=== PATIENT | female | born 1955 | race African-American/Black ===

== ENCOUNTER 2017-02-06 01:27 | Inpatient (IN) ==
[2017-02-06] MEDS ORDERED: DILAUDID IV ONE (03:55)
[2017-02-06] MEDS ORDERED: NS 1,000 ML IV SCH (03:56)
[2017-02-06] MEDS ORDERED: SODIUM CHLORIDE 0.9% INJ ONE (03:56)
[2017-02-06] MEDS ORDERED: PROTONIX IV ONE (03:56)
--- NOTE | 2017-02-06 04:03 | PROVIDER DOCUMENTATION ---
This chart was entered by Fernando Willett Scribe, acting as scribe for Jabari Doll MD. HPI-Abdominal Pain/GI Problem - General Chief Complaint: UTI Symptoms Stated Complaint: abd pain Time Seen by Provider: 02/06/17 01:54 Source: patient Allergies/Adverse Reactions: Patient Allergies Allergy/AdvReac Type Severity Reaction Status Date / Time No Known Allergies Allergy Verified 02/06/17 02:29 Home Medications: Home Medication List Medication Instructions Recorded Confirmed Last Taken Type Famotidine [Pepcid] 20 mg PO DAILY #30 cap 01/03/17 02/06/17 02/05/17 Rx Hyoscyamine Sulfate [Oscimin] 1 tab PO TID 01/12/17 02/06/17 02/05/17 History Sulfamethoxazole/Trimethoprim 1 each PO BID #14 tablet 02/04/17 02/06/17 Rx [Bactrim Ds Tablet] Citalopram Hydrobromide 40 mg PO DAILY 02/06/17 02/06/17 02/05/17 History [Citalopram HBr] Haloperidol [Haloperidol] 10 mg PO DAILY 02/06/17 02/06/17 02/05/17 History - History of Present Illness-ABD Nature of Presenting Problems: Pt is a61 y/o Black female with severe abdominal pain 10 out of 10 for 2 weeks. Pt says she has chronic pancreatitis and says she drinks about 12 beers a day. Pt says she has not been drinking as much as since she has been sick. Pt complains of N/V with some blood in her vomit. Pt says she has no dysuria now. Abdominal Pain Onset Location: reports: RUQ, LUQ Pain Radiation: reports: no radiation Quality of Pain: reports: aching Severity in ED: reports: severe Onset/Duration: reports: other (2 weeks) Timing: reports: still present Activities at Onset: reports: none Modifying Factors: improves with: analgesics Associated Symptoms: reports: diarrhea, nausea, vomiting. denies: fever/chills , sinus congestion/drainage Last BM: unsure Dark Stools Present?: reports: none noticed Rectal Bleeding: reports: none Emesis Description: reports: blood-streaked Review of Systems - Adult - REVIEW OF SYSTEMS - ADULT Constitutional: denies: chills, fever Eyes: reports: no symptoms reported Ears, Nose, Mouth & Throat: reports: no symptoms reported Cardiovascular: denies: chest pain, edema Respiratory: denies: cough, shortness of breath, wheezing Gastrointestinal: reports: abdominal pain, diarrhea, nausea, vomiting. denies: constipation, rectal bleeding Genitourinary: denies: dysuria, discharge, flank pain, hematuria, urinary retention Musculoskeletal: denies: back pain, muscle weakness, neck pain Integumentary: reports: no symptoms reported Neurological: reports: no symptoms reported Psychiatric: reports: no symptoms reported Endocrine: reports: no symptoms reported Hematologic/Lymphatic: reports: no symptoms reported Allergic/Immunologic: reports: no symptoms reported All Other Systems: Reviewed and Negative Past History - Adult - PAST MEDICAL HISTORY-ADULT Review of Records: reports: Old Records Reviewed, Nursing Assessment Review, Medications Reviewed Major Childhood Illnesses: reports: denies history Cardiovascular: reports: denies history Respiratory: reports: denies history Gastrointestinal: reports: GERD, pancreatitis Obstetrical/Gynecological: reports: denies history Genitourinary: reports: denies history Musculoskeletal: reports: denies history Neurological: reports: Seizures/Epilepsy Psychiatric: reports: bipolar, schizophrenia Endocrine/Immune: reports: denies history Other Conditions: reports: denies history - PRIOR SURGERIES/PROCEDURES Surgical/Procedure History: reports: orthopedic (extremity) (LT ankle. RT arm) - IMMUNIZATION STATUS Childhood Immunizations: See Nurse Assessment Flu Vaccine: See Nurse Assessment - FAMILY HISTORY Family History: reviewed, not pertinent - SOCIAL HISTORY Substance Use: alcohol Alcohol Use Frequency: every day Number of drinks per typical drinking period:: 11-15 drinks Physical Exam-General - PHYSICAL EXAM-ADULT Initial Vital Signs Reviewed: Yes - CONSTITUTIONAL General Appearance: appears well, alert, no apparent distress - EYES Eyes: PERRL/EOMI, pink conjunctivae - HEAD, EARS, NOSE, MOUTH & THROAT HENMT: moist mucous membranes, normal ENT inspection, TMs normal, pharynx normal - NECK Neck: non-tender, full range of motion, supple, normal inspection - RESPIRATORY Respiratory: lungs clear, normal breath sounds, no pleuratic chest pain, no respiratory distress, no accessory muscle use - CARDIOVASCULAR Cardiovascular: normal peripheral pulses, regular rate, rhythm - GASTROINTESTINAL (ABDOMEN) Abdominal Exam: normal bowel sounds, soft, tenderness (RUQ, LUQ). negative: distended, guarding, rebound - MUSCULOSKELETAL Back Exam: normal inspection, no CVA tenderness, no vertebral tenderness Extremity: normal range of motion, non-tender, normal gait, normal inspection - SKIN Integumentary: normal color, normal turgor, warm/dry - NEUROLOGIC Neurologic: grossly normal, no motor/sensory deficits - PSYCHIATRIC Psych/Mental Status: normal mood/affect, normal thought content, normal thought process, oriented x 3 Progress - PLAN OF CARE/RESULTS Progress/Plan/Lab Results: Vital Signs - 8 hr 02/06/17 01:45 Temperature 98.2 F Pulse Rate 79 Respiratory Rate 18 Blood Pressure 152/85 O2 Sat by Pulse Oximetry 100 - CT/MRI 1 CT Study: Abdomen, Pelvis Impression: Abnormal, See EMR Report (consistent withgastric carcinoma (my reading)) Departure - Departure Date of Disposition Decision: 02/06/17 Time of Disposition Decision: 04:02 DIAGNOSIS: Abdominal pain Qualifiers: Abdominal location: epigastric Qualified Code(s): R10.13 - Epigastric pain Disposition: ADMITTED INPATIENT 09 Certified Medical Emergency: Emergent Condition: Fair Referrals and Follow-Ups: None,PCP [Primary Care Provider] - - Critical Care Note This patient required my direct & personal management of CC.: No Attestation - Physician/ MOISÉS Attestation Patient care was provided by Advanced Practice Provider:: No The physician spent face to face time with patient:: Yes Advanced Practice Provider documentation review:: Supervising physician onsite and consulted in the evaluation and care of this patient. The physician did have a face to face encounter with the patient. This chart was documented by the indicated scribe, (Fernando Willett Scribe) and accurately reflects the services I performed and decisions made by me, Jabari Doll MD, as attested by the provider's signature.
--- NOTE | 2017-02-06 05:06 | HISTORY AND PHYSICAL ---
PRIMARY CARE PHYSICIAN: None. CHIEF COMPLAINT: Epigastric pain x3 weeks. HISTORY OF PRESENTING ILLNESS: A 61-year-old female with a history of paranoid schizophrenia who had presented to the emergency department with a 3 week history of having intermittent epigastric pain. She described it as a burning sensation and stated that she did not feel well. She apparently had come to the emergency department several times for similar symptoms. The patient had a CAT scan done and as per ER physician, it showed thickened gastric areas, possibly suspicious for an ulcer versus a lesion. Due to her presenting symptoms, it was thought that we would place her for observation for further evaluation by gastroenterology. At the time of my examination, she had denied any headache, fever, chills, chest pain, or shortness of breath but complained of epigastric pain. PAST MEDICAL HISTORY: Includes paranoid schizophrenia. PAST SURGICAL HISTORY: None. ALLERGIES: No known drug allergies. CURRENT MEDICATIONS: As listed on the medication reconciliation sheet. SOCIAL HISTORY: She denies any history of smoking. Admits to social alcohol use. Denies any illicit drug use. FAMILY HISTORY: No history of coronary artery disease. REVIEW OF SYSTEMS: Twelve point review of systems as listed in the HPI. Other systems negative. PHYSICAL EXAMINATION: GENERAL: Cooperative, friendly female. She is resting comfortably now. VITAL SIGNS: Temperature is 98.2 degrees, pulse 79, respirations 18, blood pressure 152/85. HEENT: Atraumatic, normocephalic. Extraocular movements intact. PERRLA. NECK: Supple. CHEST: Clear to auscultation. CARDIOVASCULAR: Regular rate and rhythm. ABDOMEN: Soft. Positive bowel sounds. EXTREMITIES: No edema. NEUROLOGIC: She is awake, alert, oriented x3. : No bladder distention. SKIN: Warm. LABORATORIES AND STUDIES: Still pending. ASSESSMENT: A 61-year-old female with a history of paranoid schizophrenia who had presented to the emergency department with a 3 week history of having ongoing epigastric pain. She apparently had a CAT scan done which did show a possible gastric lesion versus ulcer. Due to her presenting symptoms, it was thought that we would place her for observation for further evaluation and management. 1. Epigastric pain. 2. Abnormal CT read by emergency room physician. 3. Paranoid schizophrenia. PLAN: 1. We will admit patient for observation. 2. Start patient on PPI. 3. We will consult gastroenterology. 4. We will restart her home medications. 5. Put patient on DVT prophylaxis with SCDs. 6. We will continue to follow and reassess. cc: Vimal Hopkins MD
[2017-02-06] MEDS ORDERED: ZOFRAN IV PRN (06:28)
[2017-02-06] MEDS: SODIUM CHLORIDE 0.9% INJ SCH (06:47)
[2017-02-06] MEDS: PROTONIX IV SCH (06:47)
--- NOTE | 2017-02-06 07:15 | Diag Imaging Result Doc PS360 ---
EXAM: CT ABD/PELVIS W/ IV CONT ONLY HISTORY: midepigastric pain TECHNIQUE: CT of the abdomen and pelvis with intravenous contrast and dose reduction (clarity.) COMMENT: There are no previous studies. There is minimal atelectasis or fibrosis in the posterior costophrenic sulci. There is a small hiatal hernia. There is mucosal thickening in the gastric antrum. There is an apparent ulcer crater in the posterior wall of the gastric antrum measuring 11 mm in diameter. No definite evidence of perforation is present but there is some stranding in the mesenteric fat adjacent to this. No abnormal fluid collections are present otherwise. There is no evidence of abdominal aortic aneurysm. The mesenteric arteries are patent. There is a fairly large calcified plaque in the proximal left renal artery. There are granulomata in the spleen. There are no apparent gallstones. There is a calcified node near the head of the pancreas. There is no evidence of biliary dilatation. The liver is unremarkable. The adrenal glands are not enlarged. The pancreas is normal in appearance. There is some cortical scarring in the upper pole and to lesser extent the lower pole of the right kidney. No evidence of hydronephrosis or stones is present. There is no evidence of bowel obstruction. No significant adenopathy is present. Pelvis: The appendix is normal in appearance. There are number of hyperdense masses with some calcification in the uterus most likely representing multiple leiomyomata. No abnormal fluid collections are present. There are no other masses and there is no evidence of significant adenopathy. Gas and stool are present in the rectum. No acute bony abnormalities are present. IMPRESSION: 1. Hiatal hernia. Apparent ulcer in the gastric antrum with antral gastritis. 2. Fibroid uterus. Electronically signed by Janusz Vivar 02/06/2017 7:13 AM
[2017-02-06] MEDS: HALDOL PO SCH (09:55)
[2017-02-06] MEDS: CELEXA PO SCH (09:55)
--- NOTE | 2017-02-06 15:26 | PROGRESS NOTE ---
DATE: 02/06/2017 SUBJECTIVE: Today, Ms. Joseph referred to be doing a lot better. Still has residual stomach discomfort. Of note, Ms. Joseph got admitted early this morning because of epigastric pain, which has been going on for the past 3 weeks. Was evaluated in the ER. A CT scan of the abdomen and pelvis shows hiatal hernia and apparent ulcer in the gastric atrium with antral gastritis. Was therefore admitted for adequate medical care. OBJECTIVE: Vital signs: Blood pressure is 117/68, pulse of 74, respirations 24, temperature is 98.7. General: Ms. Joseph is a 61-year-old, female. She is in bed, does not seem to be in unremarkable distress. HEENT: Mucosa is pink and moist. Anicteric, acyanotic. The patient has very poor dentition. Chest: Clear. Cardiovascular: Regular rate and rhythm. There are no murmurs, no rubs, no gallops. Abdomen: Soft, mildly tender in the epigastrium. Bowel sounds are present. PROFESSIONAL DEVELOPMENT INSTRUCTOR: Patient is awake and alert and oriented x4. There is no focal neurological deficit. LABORATORY DATA: None for today. A CT scan of the abdomen shows hiatal hernia. Apparent ulcer in the gastric antrum with antral gastritis. ASSESSMENT: 1. Epigastric pain secondary to gastric ulcer with antral gastritis on CT scan. Patient is currently on proton pump inhibitor. Will be pending on gastroenterology to evaluate the patient for possible EGD. Get some biopsies to make sure there is not any underlying malignancy. 2. Hiatal hernia, noted on CT scan. 3. History of paranoid schizophrenia. Currently stable. 4. Poor dentition. 5. Protein calorie malnutrition with a body mass index of 16.9. PLAN: So in general, I think Ms. Joseph is relatively stable. She was using a lot of ibuprofen according to her, so I suspect the GI findings is probably secondary to NSAID abuse. The patient has been cautioned not to use that anymore. Will continue with the PPI and her regular medications for her underlying chronic medical problems. Awaiting GI to evaluate the patient and then go from there. cc: Ramy Mathias MD
[2017-02-06] MEDS: CARAFATE LIQUID PO SCH ×2 (17:29→22:12)
[2017-02-06] MEDS: TYLENOL PO PRN (17:29)
[2017-02-07] MEDS: CARAFATE LIQUID PO SCH ×5 (04:23→23:50)
[2017-02-07] MEDS: PROTONIX IV SCH ×2 (06:40→23:49)
[2017-02-07] MEDS: SODIUM CHLORIDE 0.9% INJ SCH ×2 (06:40→23:50)
[2017-02-07 07:22] LABS: HEMATOCRIT 39.2 % (37.0-47.0); HEMOGLOBIN 13.5 g/dL (12.0-16.0); MCH 30.7 PG (27-31); MCHC 34.4 g/dL (33-37); MCV 89.1 FL (81-99); MPV 9.6 FL (7.4-10.4); RBC 4.4 XMIL (4.2-5.4)
[2017-02-07 07:48] LABS: CALCIUM 9.5 mg/dL (8.8-10.2); POTASSIUM 3.8 mmol/L (3.5-5.1)
[2017-02-07] MEDS ORDERED: VERSED ONE (15:38)
[2017-02-07] MEDS ORDERED: XYLOCAINE-MPF 2% ONE (15:45)
[2017-02-07] MEDS ORDERED: DIPRIVAN 1% ONE (15:45)
[2017-02-07] MEDS: CELEXA PO SCH (16:10)
[2017-02-07] MEDS: HALDOL PO SCH (16:15)
[2017-02-07 16:26] LABS: UR CREAT RANDOM 78.1 mg/dL (11-20); UR PROT RANDOM 13.7 mg/dL
--- NOTE | 2017-02-07 16:36 | PROGRESS NOTE ---
DATE: 02/07/2017 SUBJECTIVE: The patient is resting comfortably in bed. She is awaiting her EGD. She has no complaints at this time. OBJECTIVE: Vital Signs: Temperature 97.6 degrees, blood pressure 111/72, heart rate 65, respirations 16, O2 saturations 99% on room air. General: This is an elderly female sitting up in bed, in no acute distress. Head: Normocephalic, atraumatic. Heart: S1, S2. Normal. Regular rate and rhythm. Lungs: Clear to auscultation bilaterally. No crackles. No rales. Abdomen: Positive bowel sounds. Soft, nontender, nondistended. Extremities: No edema. No cyanosis. Neurologic: The patient is alert oriented x3. LABORATORY: Hemoglobin 13, hematocrit 39, platelets 269,000, white blood cell count 3.8. Sodium 135, potassium 3.8, chloride 101, CO2 13, anion gap 21, BUN 14, creatinine 1.4, glucose 66, calcium 9.5, TSH 3.12. ASSESSMENT AND PLAN: 1. Gastric ulcer. The patient is scheduled for an EGD today. Continue on IV Protonix and await the results of the endoscopy. 2. Acute kidney injury. We will start the patient on IV fluids and repeat the renal profile in the morning. Check urine studies. 3. Metabolic acidosis. The patient has been started on a bicarbonate drip. 4. Situational depression. Continue on Celexa. 5. Deep vein thrombosis prophylaxis. Continue with SCDs. cc: Kyleigh Landry MD [facility]
[2017-02-07] MEDS: 1/2 NS IV SCH (16:40)
[2017-02-07] MEDS: D5 IV SCH (16:40)
[2017-02-07] MEDS: SODIUM ACETATE IV SCH (16:40)
[2017-02-07] MEDS: TYLENOL PO PRN (17:40)
[2017-02-07] MEDS ORDERED: SODIUM CHLORIDE 0.9% INJ SCH (21:06)
--- NOTE | 2017-02-07 23:30 | CONSULTATION ---
DATE OF CONSULTATION: 02/06/2017 REFERRING PHYSICIAN: Ramy Mathias M.D. PRIMARY CARE PHYSICIAN: None. CHIEF COMPLAINT: 1. Epigastric pain. 2. Nausea with vomiting. 3. Large ulcer on CT scan with surrounding gastritis. HISTORY OF PRESENT ILLNESS: The patient is a 61-year-old, female with paranoid schizophrenia who presented to the emergency room with 3 weeks of epigastric pain. She describes nausea with vomiting, epigastric pain that is localized anteriorly without radiation. She reports that she is not taking any medications except for those that are prescribed by her physician. Because of the abnormal CT scan, we are asked to perform an upper endoscopy. She notes that although she is 61 years of age, she has never had a screening colonoscopy. She denies a family history of colon cancer and colon polyps. PAST MEDICAL HISTORY: 1. Paranoid schizophrenia. 2. GERD. 3. Acute pancreatitis. 4. History of peptic ulcer disease. 5. Depression. 6. Suicidal ideation. 7. History of acute psychoses. 8. History of polysubstance abuse, including cocaine, alcohol and marijuana. She notes that her last alcohol was 12/27/2016, although her toxicology screen was positive for alcohol more recently. 9. Urinary tract infection. 10. 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 11. Bilateral cataracts. 12. Angioedema on 01/12/2017. 13. Hiatal hernia. 14. Gastritis. 15. Protein calorie malnutrition. 16. The patient was so that she may have irritable bowel syndrome. PAST SURGICAL HISTORY: None. MEDICATION ALLERGIES: None. HOME MEDICATIONS: 1. Haldol. 2. Citalopram. 3. Bactrim. 4. Hyoscyamine sulfate. 5. Pepcid. SOCIAL HISTORY: The patient denies alcohol, tobacco or recreational drug use. However, review of her chart is remarkable for substantial alcohol, cocaine and marijuana use on toxicology screen and blood alcohol level. FAMILY HISTORY: Negative for coronary artery disease, colon cancer and colon polyps. REVIEW OF SYSTEMS: Positive for the information in the history of present illness. PHYSICAL EXAMINATION: Vital signs: Her blood pressure is 105/62, pulse 74, respiration 24, temperature of 98.4 degrees. HEENT: Negative for jaundice. Her conjunctivae are normal. Her oropharyngeal mucosal membranes are moist. There is poor dentition. Pulmonary : Lungs are clear to auscultation with normal expiratory effort. Cardiovascular: Reveals regular rate and rhythm with no murmurs, gallops, or rubs. Abdominal: Reveals normoactive bowel sounds. The abdomen is soft with moderate epigastric tenderness, but no rebound or guarding. Extremities: Bilaterally are negative for cyanosis, clubbing, or edema. LABORATORY: The last set of laboratory results available are from 02/04/2017. At that time, her hemoglobin is 14 with hematocrit of 39.9, and a white count of 4.54. She has 316,000 platelets. Sodium is 139, potassium 3.5, chloride 101, CO2 is 18, BUN 9, creatinine 1.2 with a glucose of 101. Calcium is 9.7, total bilirubin 0.30, AST 13, ALT 7, alkaline phosphatase 59, total protein 8.5, albumin 5 and a lipase of 23. In the emergency room, urinalysis is remarkable for too- [id number] white blood cells. Her urine toxicology screen was positive for marijuana. IMPRESSION: 1. Epigastric pain. 2. Nausea with vomiting. 3. Ulcer on CT scan. RECOMMENDATION: 1. I strongly suspect the patient has been using nonsteroidal antiinflammatory drugs. We will place her on the schedule for an EGD for further evaluation in the morning. 2. Begin Protonix 40 mg IV q.12 hours. 3. Begin Carafate 1 g p.o. 4 times a day pending endoscopic evaluation. 4. We will make arrangements for the patient undergo an outpatient screening colonoscopy. 5. Additional recommendations to follow based on clinical course. 6. The patient has been on hyoscyamine for abdominal pain. It is reasonable to resume this postprocedure. 7. Additional recommendations to follow based on her clinical course. cc: MD Ramy Barr MD [facility]
--- NOTE | 2017-02-08 03:26 | OPERATIVE NOTE ---
PROCEDURE DATE: 02/07/2017 REFERRING PHYSICIAN: Ramy Mathias M.D. PRIMARY CARE PROVIDER: None. INDICATION FOR PROCEDURE: 1. Nausea with vomiting. 2. Epigastric pain. 3. Ulcer and gastritis on CT scan of the abdomen. 4. NSAID use, with a history of BC and Goody Powder ingestion. PROCEDURE PERFORMED: Esophagogastroduodenoscopy with biopsy. CONSENT: Informed consent was obtained from the patient prior to the procedure. The risks, benefits, and alternatives were discussed. MEDICATION: The patient received monitored anesthesia care. PERFORMING PHYSICIAN: Daphnie Figueroa M.D. ASSISTANTS: 1. ST. [facility]Daval 2. Margret Griffith RN. 3. Geena Villegas CRNA. 4. Keshav Gordon M.D. (anesthesia). COMPLICATIONS: There were no complications. ESTIMATED BLOOD LOSS: 1-2 mL. SPECIMENS REMOVED: 1. Duodenal biopsy. 2. Gastric biopsy. FINDINGS: After sedation was achieved, the upper endoscope was inserted to the 2nd portion of the duodenum. The hypopharynx appeared endoscopically normal. At the upper esophageal sphincter, there was a mucosal ledge, consistent with cricopharyngeal achalasia. The tubular esophagus itself appeared normal, with no evidence of varices or Campos's esophagus. In the distal esophagus, there was a tight Schatzki's ring that was dilated with the scope. There was a small amount of heme present, but no evidence of perforation. In the gastric lumen, there was diffuse erosive gastritis. On retroflexed view, there was erosive gastritis in the fundus. In the antrum and body, there at least 6 cratered whitish-based ulcers. The smallest ulcer with approximately 6- 8 mm in size. The largest ulcer was approximately 2.5-3 cm in size. Multiple biopsies were obtained. The pylorus appeared normal. However, in the duodenum, there was severe erosive duodenitis, and possible early duodenal ulceration. Multiple biopsies were obtained. After the exam was complete, the lumen was decompressed and the scope was removed without incident. IMPRESSION: 1. 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 2. Tight Schatzki's ring, dilated with the scope. 3. Erosive gastritis. 4. Multiple large whitish-based ulcers, with no stigmata of bleeding. 5. Erosive gastritis. 6. Severe duodenitis, with early duodenal ulceration. RECOMMENDATION: 1. Await endoscopic biopsy results. 2. Begin omeprazole 40 mg p.o. b.i.d. for 6 weeks, then once daily. 3. Begin Carafate 1 g p.o. 4 times a day for 12 weeks, then stop. 4. The patient should undergo a repeat EGD with dilation of the upper and lower esophageal sphincter. In addition, we will reassess the multiple gastric ulcers to determine if there are healed. 5. We will await the biopsy results to determine if she has H. pylori. If it is positive, we will treat accordingly. 6. The patient has never had a screening colonoscopy. We will plan to perform a screening colonoscopy when we repeat her EGD in 12 weeks. 7. As long as the patient's blood count is stable, it is reasonable to discharge her in the next 1-2 days from a GI perspective. 8. We will have the patient return to clinic in 4 weeks to assess interval progress. cc: MD Ramy Barr MD Katherine Takundwa, MD MTDD
[2017-02-08 06:58] LABS: HEMATOCRIT 34.3 % (37.0-47.0); MCH 30.6 PG (27-31); MCV 87.5 FL (81-99); MPV 9.9 FL (7.4-10.4); RBC 3.92 XMIL (4.2-5.4)
[2017-02-08 07:23] LABS: AGAP 13; ALBUMIN 3.8 g/dL (3.5-5.0); BUN 9 mg/dL (8-22); CALCIUM 8.9 mg/dL (8.8-10.2); CHLORIDE 105 mmol/L (98-107); COSMO 280; POTASSIUM 3.6 mmol/L (3.5-5.1); SODIUM 141 mmol/L (136-145); TCO2 23 mmol/L (25-35)
[2017-02-08] MEDS: 1/2 NS IV SCH (09:30)
[2017-02-08] MEDS: D5 IV SCH (09:30)
[2017-02-08] MEDS: SODIUM ACETATE IV SCH (09:30)
[2017-02-08] MEDS: CARAFATE LIQUID PO SCH ×3 (09:32→23:07)
[2017-02-08] MEDS: HALDOL PO SCH (09:35)
[2017-02-08] MEDS: PROTONIX IV SCH ×2 (09:37→23:06)
[2017-02-08] MEDS: CELEXA PO SCH (09:39)
[2017-02-08] MEDS: TYLENOL PO PRN ×3 (10:35→23:07)
--- NOTE | 2017-02-08 17:19 | PROGRESS NOTE ---
DATE: 02/08/2017 SUBJECTIVE: This patient is still complaining of epigastric pain, moderate, I have reviewed her lab work and the hemoglobin dropped from 13.5 to 12, the acute kidney injury resolved after fluids. She was scoped yesterday and impression. Probably cricopharyngeal achalasia, Schatzki ring dilated with the scope. Erosive gastritis, multiple large whitish base ulcers with no stigmata of bleeding. Severe duodenitis with early duodenal ulceration. OBJECTIVE: Vital Signs: Temperature 98.1 degrees, pulse 73, respiratory rate 16, blood pressure 120/73, oxygen saturation 100% on room air. HEENT: Head normocephalic. No trauma. PERRLA. Neck: Supple. No JVD. No masses. Central trachea. Chest: Clear to auscultation. No wheezing. No rales. Abdomen: Soft, tender to palpation at the level of the epigastric area and periumbilical area, moderate, nonradiated, positive bowel sounds. Extremities : No edema. No clubbing. No cyanosis. Neurological: The patient is alert and oriented x3. No focal deficits. LABORATORY: WBC 3.2, hemoglobin 12, hematocrit 34.3, platelets 253,000. Sodium 141, potassium 3.6, chloride 105, bicarbonate 23, BUN 9, creatinine 0.8, glucose 92, calcium 8.3, albumin 3.8. ASSESSMENT AND PLAN: 1. Gastritis and duodenitis with multiple gastric ulcers and early duodenal ulceration, this patient has been followed by Gastroenterology Department. An EGD was done yesterday. We will continue with her treatment, hopefully tomorrow will discharge this patient if the lab work is okay. 2. Acute kidney injury. Resolved. 3. Metabolic acidosis likely secondary to kidney injury resolved. 4. Situational depression. Continue on Celexa. 5. Deep vein thrombosis prophylaxis. Continue with SCDs. cc: Brent Alonso MD [facility]
[2017-02-08] MEDS ORDERED: AMOXIL PO ONE (17:56)
[2017-02-08] MEDS ORDERED: PHENERGAN IV PRN (18:01)
[2017-02-08] MEDS ORDERED: SODIUM CHLORIDE 0.9% INJ PRN (18:01)
--- NOTE | 2017-02-08 20:01 | PROGRESS NOTE ---
DATE: 02/08/2017 SUBJECTIVE: The patient continues to have significant epigastric pain despite receiving Carafate and Protonix. She reports some nausea but is able to press on her epigastrium which induced pain. EXAM: Her blood pressure is 120/73, pulse 73, respirations 16, temperature of 98.1 degrees. The remainder of her exam was deferred as the patient was able to elicit epigastric tenderness and epigastric pain with palpation. OBJECTIVE DATA: Reveals a hemoglobin of 12.0 with hematocrit of 34.3 and a white count of 3.25. She had 253,000 platelets. Sodium is 141, potassium 3.6, chloride 105, CO2 of 23, BUN 9, creatinine 0.8 with a glucose of 92. Her calcium is 8.9, phosphorus 2.5 and albumin 3.8. RECOMMENDATION: 1. In light of the patient's multiple gastric and duodenal ulcerations, I would continue the Protonix and twice a day PPI therapy for 12-24 weeks. 2. Although her test results are pending, I will empirically begin treatment for H pylori in light of her persistent abdominal pain. 3. Her hemoglobin has dropped 1.5 g overnight. Therefore, I recommend monitoring for another 24 hours. If her hemoglobin continues to drop, she may need further evaluation including a colonoscopy. It is not uncommon for NSAIDs to cause nonspecific colonic ulcerations when there has been such degree of ulceration in the stomach. 4. Additional recommendations will be based on her clinical course. cc: Brent Alonso MD
[2017-02-08] MEDS: SODIUM CHLORIDE 0.9% INJ SCH (23:06)
[2017-02-08] MEDS: BIAXIN PO SCH (23:07)
[2017-02-09] MEDS: CARAFATE LIQUID PO SCH ×2 (06:17→09:59)
[2017-02-09 07:18] LABS: MANUAL DIFF NEEDED? NO
[2017-02-09 07:19] LABS: BASO% 1.2 % (0.0-0.8); EOS# 0.09 X1000 (0.0-0.7); EOS% 2.2 % (0.0-10.0); HEMATOCRIT 35.9 % (37.0-47.0); HEMOGLOBIN 12.6 g/dL (12.0-16.0); LYMPH# 1.63 X1000 (1.2-3.4); LYMPH% 39.3 % (20.5-51.1); MCH 30.3 PG (27-31); MCHC 35.1 g/dL (33-37); MCV 86.3 FL (81-99); MONO# 0.48 X1000 (0.11-0.59); MONO% 11.6 % (1.7-9.3); MPV 9.6 FL (7.4-10.4); NEUT% 45.7 % (42.2-75.2); PLT 301 X1000 (130-400); RBC 4.16 XMIL (4.2-5.4)
[2017-02-09 07:38] LABS: AGAP 9; ALBUMIN 3.6 g/dL (3.5-5.0); BUN 13 mg/dL (8-22); CALCIUM 9.2 mg/dL (8.8-10.2); CHLORIDE 102 mmol/L (98-107); COSMO 287; POTASSIUM 3.4 mmol/L (3.5-5.1); SODIUM 144 mmol/L (136-145); TCO2 33 mmol/L (25-35)
[2017-02-09] MEDS ORDERED: KLOR-CON POWDER PACKET PO ONE (07:58)
[2017-02-09] MEDS: PROTONIX IV SCH (09:58)
[2017-02-09] MEDS: HALDOL PO SCH (09:59)
[2017-02-09] MEDS: CELEXA PO SCH (09:59)
[2017-02-09] MEDS: BIAXIN PO SCH (09:59)
[2017-02-09] MEDS: TYLENOL PO PRN (10:11)
[2017-02-09 12:16] VITALS: BP 110/88
[2017-02-09] MEDS ORDERED: CARAFATE PO SCH (13:00)
--- NOTE | 2017-02-09 15:43 | DISCHARGE SUMMARY ---
ADMISSION DATE: 02/06/2017 DISCHARGE DATE: 02/09/2017 DISCHARGE DIAGNOSES: 1. Gastritis and duodenitis with multiple gastric ulcers and early duodenal ulceration. 2. Possible Helicobacter pylori, pending biopsy. 3. Acute kidney injury, resolved. 4. Metabolic acidosis, likely secondary to kidney injury, resolved. 5. Situational depression. CONSULTATIONS: Gastroenterology Department, Dr. Figueroa. HOSPITAL COURSE: This is a 61-year-old female with a past medical history of paranoid schizophrenia, who had presented to the emergency department with the chief complaint of history of having intermittent epigastric pain that started 3 weeks prior to admission, associated with burning sensation. CT scan done at the emergency department showed thickening of gastric area suspicious for ulcers versus a mass lesion. Due to her presenting symptoms, she was evaluated and admitted to the hospital. Gastroenterology Department performed an upper endoscopy that showed gastritis and duodenitis with multiple gastric ulcers and early duodenal ulceration. This patient has been placed on Carafate and also PPIs after the procedure. Due to her lesions, it was felt that we needed to start this patient on treatment for H. pylori, even though pathology report is pending. Today, 02/09/2017, this patient was feeling better. Lab work was stable, so we decided to discharge this patient with strict followup by Dr. Figueroa in 3 weeks and also followup by her primary care doctor in 1 week. At the moment of discharge, this patient was tolerating p.o., ambulating and with mild symptoms, much better compared with admission. PHYSICAL EXAMINATION: VITAL SIGNS: Temperature is 98.5, pulse 100, respiratory rate 19, blood pressure 110/88, oxygen saturation 100% on room air. HEENT: Head is normocephalic and atraumatic. PERRLA. NECK: Supple. No JVD. No masses. Central trachea. CHEST: Clear to auscultation. No wheezing, no rales. ABDOMEN: Soft. Mildly tender to palpation at the level of the epigastric area. Positive bowel sounds. Nondistended. EXTREMITIES: No edema, no clubbing, no cyanosis. NEUROLOGICAL: The patient was alert and oriented x3. No focal neuro deficits. DIAGNOSTIC DATA: WBC was 4.1, hemoglobin 12.6, hematocrit 35.9, platelets 301. Sodium is 144, potassium 3.4, chloride 102, bicarbonate 33, BUN is 13, creatinine 0.7, glucose 91, calcium 9.2, albumin 3.6. FOLLOWUP: Dr. Figueroa in 3 to 4 weeks and also follow up with her primary care doctor in 1 week. DISCHARGE MEDICATIONS: Haloperidol 10 mg p.o. daily, citalopram 40 mg p.o. daily, sucralfate 1 g p.o. 4 times a day, omeprazole 40 mg p.o. b.i.d., clarithromycin 500 mg p.o. b.i.d. for 2 weeks, amoxicillin 1 g p.o. q.12 hours for 2 weeks, acetaminophen 650 mg p.o. q.4 hours p.r.n. pain. Time discharging this patient was 35 minutes. cc: Brent Alonso MD
[2017-02-09] MEDS ORDERED: PRILOSEC PO SCH (21:00)
[2017-02-09] MEDS ORDERED: AMOXIL PO SCH (21:00)
--- NOTE | 2017-02-11 07:14 | EKG Report ---
Test Performed on : 02/09/2017 10:52:09 AM Test Reason : CP Blood Pressure : / mmHG Vent. Rate : 085 BPM Atrial Rate : 085 BPM P-R Int : 204 ms QRS Dur : 072 ms QT Int : 376 ms P-R-T Axes : 047 017 058 degrees QTc Int : 447 ms Normal sinus rhythm. Septal infarct , age undetermined Abnormal ECG When compared with ECG of 12-APR-2014 07:03, PA interval has decreased Nonspecific T wave abnormality Inferior leads T wave inversion now evident in V1-V2 Nonspecific ST abnormality precordial leads Confirmed by Anil Nj DO ([id number]) on 02/11/2017 6:23:07 PM
== END 2017-02-09 12:00 | disposition home or self-care (01) ==
LOC: ED 01:27 → 3N 01:27 → SUATTDRO 06:03 → OBSVTOIN 06:03
PROVIDERS: ATTEND Internal Medicine

== ENCOUNTER 2017-02-20 21:23 | Inpatient (IN) ==
[2017-02-20] MEDS ORDERED: PHENERGAN PO ONE (23:02)
[2017-02-20] MEDS ORDERED: TYLENOL WITH CODEINE #3 PO ONE (23:02)
[2017-02-20] MEDS ORDERED: PRILOSEC PO ONE (23:03)
[2017-02-20 23:34] LABS: MANUAL DIFF NEEDED? NO
[2017-02-20 23:38] LABS: EOS# 0.09 X1000 (0.0-0.7); EOS% 2.4 % (0.0-10.0); HEMATOCRIT 37.6 % (37.0-47.0); HEMOGLOBIN 13.2 g/dL (12.0-16.0); LYMPH# 1.96 X1000 (1.2-3.4); LYMPH% 51.4 % (20.5-51.1); MCH 29.9 PG (27-31); MCHC 35.1 g/dL (33-37); MCV 85.3 FL (81-99); MONO# 0.32 X1000 (0.11-0.59); MONO% 8.4 % (1.7-9.3); MPV 8.9 FL (7.4-10.4); NEUT% 36.8 % (42.2-75.2); PLT 441 X1000 (130-400); RBC 4.41 XMIL (4.2-5.4)
[2017-02-20 23:56] LABS: AGAP 17; ALBUMIN 4.5 g/dL (3.5-5.0); ALKALINE PHOSPHATASE 62 U/L (32-104); BUN 7 mg/dL (8-22); CALCIUM 9.8 mg/dL (8.8-10.2); CHLORIDE 97 mmol/L (98-107); COSMO 275; GOT 42 U/L (10-30); GPT 138 U/L (10-36); LIPASE 31 U/L (13-60); POTASSIUM 3.1 mmol/L (3.5-5.1); SODIUM 139 mmol/L (136-145); TCO2 25 mmol/L (25-35); TOTAL BILIRUBIN 0.61 mg/dL (0.20-1.00)
[2017-02-21] MEDS ORDERED: MORPHINE IV ONE (00:29)
[2017-02-21] MEDS ORDERED: ZOFRAN IV ONE (00:29)
--- NOTE | 2017-02-21 00:30 | PROVIDER DOCUMENTATION ---
This chart was entered by Negin Sheikh Scribe, acting as scribe for Fernando Gonzalez MD. HPI-Abdominal Pain/GI Problem - General Chief Complaint: Return/Recheck Stated Complaint: epigastric pain Time Seen by Provider: 02/20/17 22:51 Source: patient Allergies/Adverse Reactions: Patient Allergies Allergy/AdvReac Type Severity Reaction Status Date / Time No Known Allergies Allergy Verified 02/06/17 02:29 Home Medications: Home Medication List Medication Instructions Recorded Confirmed Last Taken Type Omeprazole [Prilosec] 40 mg PO BID #168 capsule 02/09/17 02/16/17 02/16/17 Rx Sucralfate [Carafate] 1 gm PO 4XDAY #112 tablet 02/09/17 02/16/17 02/16/17 Rx Hydrocodone/APAP 5 mg/325 mg 1 each PO Q8H PRN PRN #10 tablet 02/16/17 Unknown Rx [Banks-5] - History of Present Illness-ABD Nature of Presenting Problems: 61 Y/O F presents to ED with ABD pain. Pt has a hx of ulcers. pt is c/o of epigastric pain and vomiting 3-4 episodes that began tonight. Pt states that she was hospitalized on the for ABD pain. Abdominal Pain Onset Location: reports: generalized abdomen Pain Radiation: reports: no radiation Quality of Pain: reports: aching Severity in ED: reports: moderate Onset/Duration: reports: this evening Timing: reports: still present Associated Symptoms: reports: vomiting. denies: EENT symptoms, headaches, shortness of breath, sensory/motor loss, pain with inspiration Review of Systems - Adult - REVIEW OF SYSTEMS - ADULT Constitutional: reports: no symptoms reported Eyes: reports: no symptoms reported Ears, Nose, Mouth & Throat: reports: no symptoms reported Cardiovascular: reports: no symptoms reported Respiratory: denies: cough, shortness of breath Gastrointestinal: reports: abdominal pain, nausea, vomiting. denies: diarrhea Genitourinary: reports: no symptoms reported Musculoskeletal: reports: no symptoms reported Integumentary: reports: no symptoms reported Neurological: reports: no symptoms reported Psychiatric: reports: no symptoms reported Endocrine: reports: no symptoms reported Hematologic/Lymphatic: reports: no symptoms reported Allergic/Immunologic: reports: no symptoms reported All Other Systems: Reviewed and Negative Past History - Adult - PAST MEDICAL HISTORY-ADULT Review of Records: reports: Old Records Reviewed, Nursing Assessment Review, Medications Reviewed, Social history reviewed & non-contributory. Major Childhood Illnesses: reports: denies history Cardiovascular: reports: denies history Respiratory: reports: denies history Gastrointestinal: reports: GERD, pancreatitis Obstetrical/Gynecological: reports: denies history Genitourinary: reports: denies history Musculoskeletal: reports: denies history Neurological: reports: Seizures/Epilepsy Psychiatric: reports: bipolar, schizophrenia Endocrine/Immune: reports: denies history Other Conditions: reports: denies history - PRIOR SURGERIES/PROCEDURES Surgical/Procedure History: reports: orthopedic (extremity) (LT ankle. RT arm) - IMMUNIZATION STATUS Childhood Immunizations: See Nurse Assessment Flu Vaccine: See Nurse Assessment - FAMILY HISTORY Family History: reviewed, not pertinent Physical Exam-General - CONSTITUTIONAL General Appearance: alert, no apparent distress - EYES Eyes: PERRL/EOMI, pink conjunctivae - HEAD, EARS, NOSE, MOUTH & THROAT HENMT: moist mucous membranes, normal ENT inspection, TMs normal, pharynx normal - NECK Neck: full range of motion, supple, normal inspection - RESPIRATORY Respiratory: lungs clear, normal breath sounds - CARDIOVASCULAR Cardiovascular: regular rate, rhythm, no edema, no gallop, no JVD, no murmur - GASTROINTESTINAL (ABDOMEN) Abdominal Exam: non tender - LYMPHATIC Lymphatic: no adenopathy - MUSCULOSKELETAL Back Exam: no CVA tenderness, no vertebral tenderness Extremity: normal range of motion, non-tender - SKIN Integumentary: normal color, normal turgor, warm/dry - NEUROLOGIC Neurologic: grossly normal - PSYCHIATRIC Psych/Mental Status: normal mood/affect, normal thought content, normal thought process, oriented x 3 Progress - PLAN OF CARE/RESULTS Progress/Plan/Lab Results: Vital Signs - 8 hr 02/20/17 21:28 Temperature 98.1 F Pulse Rate 85 Respiratory Rate 14 Blood Pressure 135/77 O2 Sat by Pulse Oximetry 100 Laboratory Results - last 24 hr 02/20/17 02/20/17 23:15 23:15 WBC 3.81 L RBC 4.41 Hgb 13.2 Hct 37.6 MCV 85.3 MCH 29.9 MCHC 35.1 RDW Std Deviation 13.2 Plt Count 441 H MPV 8.9 Immature Gran % (Auto) 0.0 Neut % (Auto) 36.8 L Lymph % (Auto) 51.4 H Toombs % (Auto) 8.4 Eos % (Auto) 2.4 Baso % (Auto) 1.0 H Immature Gran # (Auto) 0.00 Neut # (Auto) 1.40 Lymph # (Auto) 1.96 Toombs # (Auto) 0.32 Eos # (Auto) 0.09 Baso # (Auto) 0.04 Sodium 139 Potassium 3.1 L Chloride 97 L Carbon Dioxide 25 Anion Gap 17 BUN 7 L Creatinine 0.8 Estimated GFR/1.73 m2 > 60 BUN/Creatinine Ratio 9 Glucose 97 Calculated Osmolality 275 Calcium 9.8 Total Bilirubin 0.61 AST 42 H ALT 138 H Alkaline Phosphatase 62 Total Protein 8.0 Albumin 4.5 Globulin 3.5 Albumin/Globulin Ratio 1.3 Lipase 31 Orders Category Date Time Status CBC WITH ELECTRONIC DIFF [HEME] Stat Lab 02/20/17 23:15 Completed CMP [COMPREHENSIVE METABOLIC PANEL] [CHEM] Stat Lab 02/20/17 23:15 Completed LIPASE [CHEM] Stat Lab 02/20/17 23:15 Completed Acetaminophen with Codeine [Tylenol with Codeine #3] Med 02/20/17 23:02 Discontinued 1 each PO NOW ONE Omeprazole [Prilosec] Med 02/20/17 23:03 Discontinued 40 mg PO NOW ONE Promethazine [Phenergan] Med 02/20/17 23:02 Discontinued 25 mg PO NOW ONE Result Diagrams: 02/20/17 23:15 02/20/17 23:15 - CONSULTS/PCP/HOSPITALIST Notification #1 *Consult/PCP/Hospitalist*: Time Discussed: 00:16 Reason/Comments: Admit Consult Disposition: Admit (Admit Accepted) Departure - Departure Date of Disposition Decision: 02/21/17 Time of Disposition Decision: 00:28 DIAGNOSIS: Abdominal pain Qualifiers: Abdominal location: right upper quadrant Qualified Code(s): R10.11 - Right upper quadrant pain Disposition: ADMITTED INPATIENT 09 Certified Medical Emergency: Emergent Condition: Good Referrals and Follow-Ups: None,PCP [Primary Care Provider] - - Critical Care Note This patient required my direct & personal management of CC.: No Attestation - Physician/ MOISÉS Attestation Patient care was provided by Advanced Practice Provider:: No The physician spent face to face time with patient:: Yes Advanced Practice Provider documentation review:: Supervising physician onsite and consulted in the evaluation and care of this patient. The physician did have a face to face encounter with the patient. This chart was documented by the indicated scribe, (Negin Sheikh Scribe) and accurately reflects the services I performed and decisions made by me, Fernando Gonzalez MD, as attested by the provider's signature.
[2017-02-21] MEDS ORDERED: ZOFRAN IV PRN (03:06)
[2017-02-21] MEDS: MORPHINE IV PRN ×5 (03:34→21:40)
[2017-02-21] MEDS: PROTONIX IV SCH ×2 (03:34→13:49)
[2017-02-21] MEDS: SODIUM CHLORIDE 0.9% INJ SCH ×2 (03:34→13:49)
--- NOTE | 2017-02-21 04:50 | HISTORY AND PHYSICAL ---
PRIMARY CARE PHYSICIAN: None. CHIEF COMPLAINT: Epigastric pain. HISTORY OF PRESENTING ILLNESS: A 61-year-old female with a history of paranoid schizophrenia and gastric ulcers who had presented to the emergency department with a complaint of recurring epigastric pain. The patient apparently had an endoscopy done recently which did show gastric ulcers and she is on treatment for it. However, she states the pain was getting worse and subsequently she had come to the emergency department. In the ER, she was evaluated. It was noted that she also had some mildly abnormal LFTs. Due to her epigastric pain, it was thought that we would place her for observation for further management. At the time of my examination, she had denied any headache, vision changes, fevers, chills, chest pain, shortness of breath, hemoptysis, or any weight changes but complained of epigastric pain. PAST MEDICAL HISTORY: Paranoid schizophrenic and gastric ulcers. PAST SURGICAL HISTORY: None. ALLERGIES: No known drug allergies. CURRENT MEDICATIONS: As listed on the medication reconciliation sheet. SOCIAL HISTORY: No history of smoking. History of alcohol abuse, recently quit. Denies any illicit drug use. FAMILY HISTORY: No history of coronary artery disease. REVIEW OF SYSTEMS: Twelve point review of systems as listed in the HPI. Other systems negative. PHYSICAL EXAMINATION: GENERAL: Cooperative, friendly female. She is resting comfortably now. VITAL SIGNS: Temperature 98.1 degrees pulse 85, respirations 14, blood pressure 135/77. HEENT: Atraumatic, normocephalic. Extraocular movements intact. PERRLA. NECK: Supple. CHEST: Clear to auscultation. CARDIOVASCULAR: Regular rate and rhythm. ABDOMEN: Soft. Positive bowel sounds. EXTREMITIES: No edema. NEUROLOGIC: She is awake, alert, oriented x3. : No bladder distention. SKIN: Warm. LABORATORIES AND STUDIES: WBC 3.81, hemoglobin 13.2, hematocrit 37.6, platelets 41,000. Sodium 139, potassium 3.1, chloride 97, CO2 25, BUN is 7, creatinine is 0.8, glucose is 97. Lipase is 31, AST 42, ALT 138. ASSESSMENT: A 61-year-old female with a history of paranoid schizophrenia, recently diagnosed with gastric ulcers, had presented to the emergency department with a complaint of having epigastric pain .She was evaluated in the emergency room. She was also noted to have abnormal liver function tests. Due to these findings, it was thought that we would place her for observation for further evaluation and management. 1. Epigastric pain. 2. Recently diagnosed with gastric ulcers. 3. Abnormal liver function tests, possibly secondary to alcohol abuse. PLAN: 1. We will admit patient to the medical floor. 2. We will consult gastroenterology for further evaluation of epigastric pain. 3. We will check an abdominal ultrasound. 4. Put patient on DVT prophylaxis with SCD. 5. We will continue to follow and reassess. cc: Vimal Hopkins MD MTDD
[2017-02-21] MEDS: CARAFATE PO SCH ×4 (09:52→21:40)
[2017-02-21] MEDS: POTASSIUM CHLORIDE 20 MEQ/SWI 20 MEQ/100 ML IVPB IV SCH ×2 (13:49→15:57)
[2017-02-21] MEDS ORDERED: NS 500 ML ONE (14:03)
--- NOTE | 2017-02-21 20:51 | Diag Imaging Result Doc PS360 ---
CT ANGIOGRAM/MESENTERIC ARTERY - 02/21/2017 INDICATION: multiple gastric/duodenal ulcers TECHNIQUE: CT angiogram of the abdomen and pelvis with intravenous contrast. Axial CT images were obtained after administering intravenous contrast. Coronal MIP images were generated. A CT dose reduction protocol was used. COMPARISON: 02/06/2017 FINDINGS: There is some stable wall thickening of the gastric antrum consistent with gastritis. The duodenum and small and large bowel appear normal. No free air. Stable multifocal renal cortical scarring of the right kidney. The liver, gallbladder, spleen, pancreas, and adrenals are normal. There is some mild scattered vascular disease but no vascular stenosis. No evidence of hemorrhage or aneurysm. There is trace pelvic free fluid, nonspecific. IMPRESSION: Stable wall thickening of the gastric antrum consistent with gastritis. Normal angiogram of the abdomen and pelvis. Electronically signed by Roman Osorio 02/21/2017 8:49 PM
--- NOTE | 2017-02-21 23:00 | CONSULTATION ---
DATE OF CONSULTATION: 02/21/2017 REFERRING PHYSICIAN: Gerhard Garcia M.D. PRIMARY CARE PROVIDER: None. INDICATION FOR CONSULTATION: 1. Epigastric pain. 2. History of peptic ulcer disease. HISTORY OF PRESENT ILLNESS: The patient is a 61-year-old female with paranoid schizophrenia. She was initially seen on 02/06/2017, when she presented with nausea with vomiting, epigastric pain, and had a large ulcer on CT scan, with surrounding gastritis. She underwent an EGD that was remarkable for 6 gastric ulcers and multiple duodenal ulcers. Postprocedure, the patient admitted that she had been using BC Powder and Goody Powder prior to admission. She was discharged home on omeprazole and Carafate. The patient reports compliance, but states in spite of omeprazole twice a day and Carafate 4 times a day, she continued to have severe epigastric pain that has become progressively worse over the last week to 10 days. She is readmitted for evaluation and management. She is also awaiting an outpatient screening colonoscopy. She is scheduled to return for EGD to reassess her gastric ulcers in approximately 12 weeks. Currently, she denies nausea with vomiting, chest pain, and shortness of breath. She reports normal bowel habits. Her only concern is the epigastric discomfort that has been gnawing, and radiates into her back. We are asked to participate in her care. PAST MEDICAL HISTORY: 1. Paranoid schizophrenia. 2. GERD. 3. Acute pancreatitis. 4. History of peptic ulcer disease. 5. Depression. 6. Suicidal ideation. 7. History of acute psychosis. 8. History of polysubstance abuse. 9. Urinary tract infections. 10. 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 11. Bilateral cataracts. 12. Angioedema. 13. Hiatal hernia. 14. Gastritis. 15. Protein calorie malnutrition. 16. Irritable bowel syndrome. 17. Active gastric ulcers and duodenal ulcers on EGD, 02/08/2016. MEDICATION ALLERGIES: None. HOME MEDICATIONS: 1. Carafate 1 g 4 times a day. 2. Omeprazole 40 mg p.o. b.i.d. 3. Thurman 5 one p.o. q.8 hours as needed. SOCIAL HISTORY: The patient denies alcohol, tobacco, and recreational drug use. However, she has had a recent tox screen that has been positive for alcohol, cocaine, and marijuana use. FAMILY HISTORY: Negative for colon cancer, colon polyps, and coronary artery disease. REVIEW OF SYSTEMS: Only pertinent for the information as noted in the history of present illness. PHYSICAL EXAMINATION: Vital Signs: Her blood pressure is 124/89, pulse 84, respiration 20, temperature of 98.5. HEENT: Negative for jaundice. Her conjunctivae are pale. Oropharyngeal mucosa membranes are moist. She has poor dentition. Pulmonary: Lungs are clear to auscultation, with normal expiratory effort. Cardiovascular: Reveals regular rate and rhythm. No murmurs, gallops, or rubs. Abdominal: Reveals normoactive bowel sounds. The abdomen is soft, with mild- to-moderate epigastric tenderness, but no rebound or guarding. Extremities: Bilaterally are negative for cyanosis, clubbing, or edema. Neurologic: She is alert and oriented x3, with appropriate mood, affect, and memory. OBJECTIVE DATA: Reveals a hemoglobin of 13.2, with hematocrit of 37.6 and a white count of 3.81, with 441,000 platelets obtained on 02/20/2017. On 02/20/2017, her sodium was 139, potassium 3.1, chloride 97, CO2 of 25, BUN 7, creatinine 0.8, with a glucose of 97. Calcium is 9.8, total bilirubin 0.61, AST 42, ALT 138, alkaline phosphatase 62, total protein 8.0, and albumin 4.5. Her lipase is 31. IMPRESSION: 1. Epigastric pain. 2. Known gastric and duodenal ulcers. 3. New elevation in liver function tests. 4. Interval resolution of her microcytic anemia. 5. Past GI history as noted above. RECOMMENDATIONS: 1. Continue Protonix 40 mg IV q.12 hours. 2. Continue Carafate 1 g p.o. 4 times a day. 3. I recommend obtaining a CT angiogram to ensure that there is no evidence of mesenteric ischemia. 4. Please consult with General Surgery to determine if she is an appropriate candidate for possible surgical intervention if her ulcers or nonhealing. I spoke with Dr. Sharif, who will assess the patient for healing, as well as for the potential for a vagotomy with pyloroplasty. 5. Please obtain abdominal ultrasound in the morning to assess her newly elevated liver function tests. 6. I will also repeat her labs and check a hepatitis profile. 7. Consider a repeat EGD if her symptoms worsen, or she has evidence of acute blood loss. 8. Additional recommendations to follow based on her clinical course. cc: MD Gerhard Barr MD MTDD
[2017-02-22] MEDS: MORPHINE IV PRN ×5 (06:12→23:00)
[2017-02-22 06:24] LABS: MANUAL DIFF NEEDED? NO
[2017-02-22 06:37] LABS: BASO% 0.6 % (0.0-0.8); EOS# 0.13 X1000 (0.0-0.7); EOS% 3.7 % (0.0-10.0); HEMATOCRIT 33.2 % (37.0-47.0); HEMOGLOBIN 11.7 g/dL (12.0-16.0); LYMPH# 1.63 X1000 (1.2-3.4); LYMPH% 46.2 % (20.5-51.1); MCH 30.2 PG (27-31); MCHC 35.2 g/dL (33-37); MCV 85.8 FL (81-99); MONO# 0.28 X1000 (0.11-0.59); MONO% 7.9 % (1.7-9.3); MPV 9.1 FL (7.4-10.4); NEUT% 41.6 % (42.2-75.2); PLT 389 X1000 (130-400); RBC 3.87 XMIL (4.2-5.4)
[2017-02-22 06:39] LABS: INR 0.96
[2017-02-22 07:12] LABS: AGAP 13; ALBUMIN 3.8 g/dL (3.5-5.0); ALKALINE PHOSPHATASE 52 U/L (32-104); BUN 6 mg/dL (8-22); CALCIUM 9.4 mg/dL (8.8-10.2); CHLORIDE 103 mmol/L (98-107); COSMO 280; DIRECT BILIRUBIN < 0.20 mg/dL (0.00-0.20); GOT 21 U/L (10-30); GPT 78 U/L (10-36); POTASSIUM 3.7 mmol/L (3.5-5.1); SODIUM 142 mmol/L (136-145); TCO2 26 mmol/L (25-35); TOTAL PROTEIN 6.7 g/dL (6.3-8.3)
--- NOTE | 2017-02-22 08:15 | Diag Imaging Result Doc PS360 ---
US GB < RUQ (LIMITED) - 02/22/2017 INDICATION: elevated liver tests, RUQ pain TECHNIQUE: COMPARISON: CT with contrast from yesterday FINDINGS: The liver, gallbladder, pancreas, and right kidney are normal. Common bile duct measures 5 mm. Aorta, IVC, and main portal vein are patent. IMPRESSION: Negative exam. Electronically signed by Roman Osorio 02/22/2017 8:12 AM
[2017-02-22] MEDS: CARAFATE PO SCH ×4 (10:06→23:00)
[2017-02-22] MEDS: PROTONIX IV SCH ×2 (10:12→23:00)
[2017-02-22] MEDS: SODIUM CHLORIDE 0.9% INJ SCH (10:13)
--- NOTE | 2017-02-22 15:00 | PROGRESS NOTE ---
DATE: 02/22/2017 SUBJECTIVE: The patient reports feeling fine, still having epigastric pain according her 10/10, but she looks to me lying in bed very comfortable. Denies any black tarry stools or vomiting blood. OBJECTIVE: Temperature is 98.6, heart rate 80, respiratory rate 16, blood pressure 115/61, O2 saturation is 100% on room air. General: This is a 61-year-old female lying in bed in no acute distress. HEENT: Head is normocephalic and atraumatic. Anicteric sclerae. Pale conjunctivae. Mucous membranes are moist. Neck: Supple. No JVD. No carotid bruit. No lymphadenopathy or thyromegaly. Cardiovascular: S1 and S2 heard. No murmurs, gallops or rubs. Regular rate and rhythm. Respiratory: Clear bilaterally to auscultation. No work of breathing or using accessory muscles. Abdomen: Soft. Mildly tender to palpation in epigastric area. There is no sign of peritoneal irritation. Bowel sounds present. No organomegaly. Extremities: No cyanosis, clubbing or edema. Peripheral pulses present in both legs. Neurologic: The patient is alert and oriented x3, moves all 4 extremities. DIAGNOSTIC DATA: White cell count is 3.53, hemoglobin 11.7, hematocrit 33.2, platelets 349. Normal BMP. ASSESSMENT: 1. Epigastric pain. 2. History of gastric duodenal ulcers. 3. Mildly elevated ALT. PLAN: The patient was admitted to the hospital for severe epigastric pain and confusion. She has been scoped recently and found to have gastric and duodenal ulcers, and she was admitted for observation. The hemoglobin so far is stable. Abdominal pain, according to her, is 10/10 intensity, although I am not sure how reliable this patient is considering her history of schizophrenia, because even though reporting that she is in terrible pain, she looks definitely comfortable and not being in any distress and seems to not be in any pain at all. In any case, my plan will be to keep this patient today. We will check CBC tomorrow and if clinically there is no sign of bleeding and hemoglobin is the same, we may discharge her tomorrow. For suspicion for any ischemic problems, mesenteric arteriogram was performed which was unremarkable. Liver enzymes are getting better. I think those are slightly higher secondary to alcohol abuse. The abdominal ultrasound ordered at admission was completely normal. The patient has been evaluated by general surgeon, Dr. Sharif, and as per the patient, no urgent surgery at this time. cc: Gerhard Garcia MD
--- NOTE | 2017-02-22 19:02 | CONSULTATION ---
DATE OF CONSULTATION: 02/22/2017 REASON FOR CONSULTATION: Persistent intractable peptic ulcer disease. HISTORY OF PRESENT ILLNESS: This is a 61-year-old female, who has recently been diagnosed with multiple gastric and duodenal ulcers by Dr. Figueroa on a recent EGD and CT scan. She reports upper abdominal pain radiating through to her back with associated nausea and vomiting over the last month to month and a half. She has been trying to treat this at home with ibuprofen and Goody Powder. She was discharged recently with Carafate and omeprazole. The patient says there has been no improvement. She says her pain is worsened with eating. It is helped some with pain medicine. It is rated as 10/10 at its worst, and she says it is 10/10 now. She has been readmitted for persistent symptoms. PAST MEDICAL HISTORY: Paranoid schizophrenia, GERD, acute pancreatitis, likely alcohol-related. History of peptic ulcer disease. Depression, suicidal ideations. History of seizures. Hiatal hernia, gastritis, irritable bowel syndrome and history of polysubstance abuse. HOME MEDICATIONS: Carafate, omeprazole, amoxicillin, clarithromycin, Bryant. PAST SURGICAL HISTORY: Noncontributory. ALLERGIES: No known drug allergies. FAMILY HISTORY: Reviewed and noncontributory. SOCIAL HISTORY: She denies current alcohol use, although she said she drank a 12 pack daily up until a few weeks ago, when she was diagnosed with the ulcers. She denies smoking or other illicit drug use. REVIEW OF SYSTEMS: Ten systems reviewed and negative except as noted above. PHYSICAL EXAM: Vital Signs: Temperature 98.6, pulse 83, respirations 18, blood pressure 111/58, O2 saturation 100%. General: She is alert and oriented x4 and is remarkably comfortable lying in bed. She is in no distress in any way. HEENT: Normocephalic, atraumatic. Extraocular muscles intact. Pupils equal, round, reactive to light. Sclerae anicteric. She has moist mucous membranes and poor dentition. Neck: Supple. No thyromegaly. CV: Regular rate and rhythm. Respiratory: Bilateral equal breath sounds. No work of breathing. GI: Soft, nontender, nondistended. No organomegaly or mass. No hernias. Skin: Warm and dry. No rash. Musculoskeletal: Moves all extremities equally and well. Extremities: No clubbing, cyanosis, and edema. LABORATORY: White blood cell count 3.5, hemoglobin 11.7, hematocrit 33.2, platelet count 389. Metabolic profile reviewed and notable for some slight elevation of AST and ALT, but otherwise total bilirubin and alkaline phosphatase were normal. Lipase is normal. IMAGING: A mesenteric arteriogram shows some thickening of the gastric antrum, consistent with gastritis. The abdominal ultrasound shows a normal-appearing gallbladder. ASSESSMENT AND PLAN: This is a 61-year-old female with known peptic ulcer disease by history. She appears to be not getting much relief with medical management. However, the patient seems to be somewhat confused. She did not indicate to me that she was taking anything other than the antibiotics and Carafate. I did not see any medicine bottles in her purse containing a proton pump inhibitor. She also did not appear to be in any pain, although she says she was in 10/10 pain. In any case, we will keep an eye on her and see if her pain is manageable through the night. If so, she could be discharged and follow up with me as needed for worsening symptoms. We could consider a truncal vagotomy and pyloroplasty for intractable pain and nausea. cc: Juan David Sharif MD
[2017-02-23] MEDS: MORPHINE IV PRN ×3 (06:21→14:35)
[2017-02-23 08:31] LABS: HEPATITIS PROFILE ACUTE SEE COMMENTS
[2017-02-23] MEDS: PROTONIX IV SCH (09:00)
[2017-02-23] MEDS: CARAFATE PO SCH ×2 (09:00→14:35)
[2017-02-23] MEDS: SODIUM CHLORIDE 0.9% INJ SCH (09:00)
[2017-02-23 11:15] LABS: HEMATOCRIT 34.5 % (37.0-47.0)
[2017-02-23 13:57] VITALS: BP 144/81
--- NOTE | 2017-02-24 05:55 | DISCHARGE SUMMARY ---
ADMISSION DATE: 02/21/2017 DISCHARGE DATE: 02/23/2017 ADMISSION DIAGNOSES: 1. Epigastric pain. 2. Peptic ulcer disease. 3. Abnormal liver function tests. 4. Alcohol abuse. 5. Paranoid schizophrenia. DISCHARGE DIAGNOSES: 1. Epigastric pain. 2. History of gastric duodenal ulcers. 3. Mildly elevated ALT. 4. Paranoid schizophrenia. 5. Alcoholism. 6. Gastritis. CONSULTATIONS: 1. Dr. Juan David Sharif for persistent intractable peptic ulcer disease, who states that could consider a truncal vagotomy and pyloroplasty for intractable pain and nausea as an outpatient with Dr. Shairf. 2. Dr. Daphnie Figueroa, who recommended Protonix, Carafate, rule out of mesenteric ischemia and EGD, if symptoms worsened PROCEDURES: None. HOSPITAL COURSE: Ms. Berta Joseph is a 61-year-old female, with a history of paranoid schizophrenia, peptic ulcer disease and alcohol abuse, who presented to the emergency department with complaints recurring epigastric pain. She apparently had an endoscopy completed recently, which did show gastric ulcers, and she was on treatment for it; however, she presented due to the pain getting worse and, subsequently, to the point of . Her evaluation was completed, and she showed mildly abnormal LFTs. Due to the epigastric pain, she was admitted for observation and further management. A mesenteric arteriogram was performed, which was consistent with gastritis. She was started on Protonix and Carafate, and Dr. Sharif was consulted for possible surgical truncal vagotomy and pyloroplasty, secondary to her intractable pain and nausea , which he recommends can be done as an outpatient, and for her to be able to follow up with him as an outpatient for this. She also had an abdominal ultrasound performed, which was also negative. She, today, denied having nausea or vomiting. She still continues to complain of 10/10 pain all over her abdomen and requested a diet change, stating she is so hungry. According to assessment by Dr. Sharif on 02/22/2017, he felt she seemed to be somewhat confused, but did not indicate that she was taking any other medications, other than her antibiotics and Carafate. There were no medication bottles in her purse, and he felt she did not appear to be in pain, although is complaining of pain, 10/10. Again, it is recorded that even though she is reporting that she is in terrible pain with 10/10, she appears to be comfortable per another care provider. So, it was felt that if her hemoglobin and hematocrit remain stable, that she could be discharged home. The liver enzymes continue to improve, but they felt that those were slightly higher secondary to alcohol abuse history. DISCHARGE LABORATORIES: Hemoglobin 12, hematocrit 34.5. On 02/22/2017, AST was 22, ALT is 78. Her hepatitis panel, A, B and C, was all nonreactive. DISCHARGE IMAGING: Mesenteric arteriogram, on 02/21/2017, showed stable wall thickening of the gastric antrum, consistent with gastritis. Normal angiogram of the abdomen and pelvis. An abdominal ultrasound was negative. DISCHARGE VITAL SIGNS: Temperature 98.0 degrees, heart rate 67, respiratory rate 18, blood pressure 123/68, O2 saturation 100% on room air. DISCHARGE DIET: Clear liquids and Ensure with meals. Advance as tolerated. DISCHARGE DISPOSITION: Home. DISCHARGE MEDICATIONS: They have not been verified yet, but likely will go home on Carafate and Protonix, and that is likely all she would go home with, as there are no medications listed for her schizophrenia. DISCHARGE INSTRUCTIONS: Follow up with Dr. Sharif, if symptoms do not improve, and follow up Dr. Figueroa, and to take the Carafate and Protonix as prescribed. DISCHARGE TIME: 35 minutes. Dictated by KETTY Limon for Gerhard Garcia MD cc: KETTY Limon MD [facility]
== END 2017-02-23 16:10 | disposition home or self-care (01) ==
LOC: 3N 21:23 → ED 21:23 → OBSVTOIN 02-21 02:22 → SUATTDRO 02-21 02:22
PROVIDERS: ATTEND Internal Medicine